=== PATIENT | male | born 1970 | race African-American/Black ===

== ENCOUNTER 2022-10-02 19:17 | Emergency (ER) | payer BC, SELFPAY ==
[2022-10-02 19:29] VITALS: BP 160/120; PULSE 88; O2SAT 99
[2022-10-02 21:09] VITALS: BP 125/83; PULSE 85; RESP 16; TEMP 36.3; O2SAT 99; BMI 22.8
--- NOTE | 2022-10-03 00:03 | ED_ITS ---
HPI - Back Pain/Injury General Chief Complaint: Back Pain/Injury Stated Complaint: Back Spasms Time Seen by Provider: 10/02/22 23:52 Source: patient Mode of arrival: EMS Limitations: no limitations History of Present Illness HPI Narrative: 51 yo male w/ PMHx significant for HTN, anxiety, and prior back injury presents w/ low back pain and muscle spasms. Pt reports injury from 32 years ago that causes recurrent muscle spasms. Reports that this episode has been ongoing since yesterday and spasms occur w/ any movement. Denies relief from use of cyclobenzaprine, motrin, or tylenol. Denies associated fevers, chills, headache, chest pain, SOB, abd pain, hematuria/dysuria, flank pain, loss of bowel or bladder function, dysuria, urinary frequency, paresthesias, or lower extremity weakness. Denies hx of recent injury/trauma, cancer, or IV drug use. MD elicited complaint: back pain Pertinent past history: prior back pain Onset (ago): day(s) (2) Timing: intermittent Severity: mild Similar Symptoms Previously: Yes Quality: aching Location: lumbar spine Radiation: none Exacerbating factors: movement Relieving factors: immobilization Associated symptoms: denies other symptoms Treatments prior to arrival: NSAIDS, acetaminophen and other medications (cyclobenzaprine ) Work related injury: No Related Data Previous Rx's Medication Instructions Recorded acetaminophen 500 mg tablet 500 mg PO Q6H PRN fever or pain 10/03/22 (Tylenol Extra Strength) #14 tabs cyclobenzaprine 5 mg tablet 5 mg PO Q8H PRN pain (scale score 10/03/22 7-10) 5 days #14 tabs lidocaine 5 % topical patch 1 patch topical DAILY PRN pain #30 10/03/22 (Lidoderm) ea naproxen 500 mg tablet 500 mg PO BID PRN pain 10 days #20 10/03/22 tabs Allergies Allergy/AdvReac Type Severity Reaction Status Date / Time SEASONAL ALLERGIES Allergy Unknown UNKNOWN Uncoded 07/15/20 18:10 Review of Systems Review of Systems: Constitutional: No Fever, No Chills ENT/Mouth: No Ear Pain, No Nasal Congestion Cardiovascular: No Chest Pain, No SOB Respiratory: No Cough, No Sputum, No Wheezing Gastrointestinal: No Nausea, No Vomiting, No Diarrhea, No Constipation, No Abdominal pain Genitourinary: No Dysuria, No Urinary Frequency, No Hematuria, No Urinary Incontinence/retention, No Flank Pain Musculoskeletal: No joint pain, No Myalgias, No Joint Swelling, + back pain Skin: No Skin Lesions, No rash Neuro: No Weakness, No Numbness, No Paresthesias [facility] Past Medical History Attestation statement: The following information was validated with the patient. Social History Social History Advance Directives: No Advance Directives Information Provided: No Physical Exam Vital Signs: Vital Signs: Last Vital Signs Temp 98.5 F 10/03/22 00:42 Pulse 80 10/03/22 00:42 Resp 18 10/03/22 00:42 BP 125/88 10/03/22 00:42 Pulse Ox 98 10/03/22 00:42 O2 Del Method 10/03/22 00:42 BMI result Body Mass Index 22.8 Const: General: cooperative, healthy appearing and comfortable Orientation/consciousness: patient oriented x3 Limitations: no limitations HEENT: Head: Yes normal to inspection Ears: hearing grossly normal bilaterally General nose exam: Normal external nose present Eyes: General: appearance normal, both eyes and all related structures Neck: Other: No midline cervical spinous tenderness Neck: Yes normal visual inspection Chest: Chest palpation & inspection: normal inspection of the chest Resp: Effort & Inspection: normal respiratory effort and able to speak in complete sentences Auscultation: clear to auscultation bilaterally Cardio: Rate: regular rate Rhythm: regular rhythm Heart sounds: S1 normal heart sound present and S2 normal heart sound present GI: Inspection: Yes normal to inspection Palpation (GI): Soft to palpation, not firm, nontender, no guarding, not rigid and no masses Back/Spine/Pelvis: Back: No mass, No erythema, No warmth and No ecchymosis Cervical Spine: No cervical muscular tenderness and No Cervical spine tenderness Thoracic/Lumbar Spine: thoracic and lumbar spine normal to inspection, paraspinal muscle tenderness bilaterally (worse to palpation and w/ movement ) in the mid lumbar and No lumbar spinal tenderness Sacrum: no ecchymosis Skin: General skin exam: no rashes or lesions noted Neuro: Other: Strength intact throughout. No saddle anesthesia. Sensation intact to light touch. Neurovascular intact distally General: patient oriented x3, gait normal, tone normal, moves all extremities and Normal light touch and pain sensation (to bilat upper and lower extremities ) Motor exam (neuro): 5/5 motor strength present throughout Extrem: General: Yes normal to inspection Medical Decision Making Medical Decision Making MDM Narrative: 51 yo male w/ PMHx significant for HTN, anxiety, and prior back injury presents w/ low back pain and muscle spasms. On exam vital signs stable, NAD, nontoxic appearing, physical exam as above, no midline spinous tenderness throughout or red flag symptoms. Ambulating with steady gait. No saddle anesthesia. Concern for MSK pain/strain/spasming. Low suspicion for cauda equina, cord compression, renal stone/pyelo or UTI. Low suspicion for epidural abscess Plan: Pain control, PCP follow-up Differential Diagnoses: Differential diagnosis (As above) Differential Diagnosis: The differential diagnosis associated with the patient?s presentation includes: Non-ED record review: Review of External (Non-ED) Record Tests considered but not performed: Tests Considered But Not Performed (Imaging) The following testing was considered but ultimately not selected after discussion with patient/family. Discharge Plan Discharge Clinical Impression: Strain of lumbar region Patient Disposition: Home, Self-Care Instructions: Acute Low Back Pain (ED) Additional Instructions: Your pain is likely musculoskeletal Flexeril is a muscle relaxer, take at night as it makes you drowsy, do not drive, drink alcohol, or operate machinery while taking it Naproxen as an anti-inflammatory / pain medication, take with food Lidoderm patches are numbing patches, apply to painful area In addition take Tylenol at home If symptoms persist or worsen, pain becomes unbearable, you developed urinary retention or incontinence, or weakness return to the ED Prescriptions: New acetaminophen [Tylenol Extra Strength] 500 mg tablet 500 mg PO Q6H PRN (Reason: fever or pain) Qty: 14 0RF lidocaine [Lidoderm] 5 % adhesive patch,medicated 1 patch topical DAILY MDD remove after 12 hours PRN (Reason: pain) Qty: 30 0RF Rx Instructions: leave on most painful area for up to 12 hrs naproxen 500 mg tablet 500 mg PO BID PRN (Reason: pain) 10 Days Qty: 20 0RF cyclobenzaprine 5 mg tablet 5 mg PO Q8H PRN (Reason: pain (scale score 7-10)) 5 Days Qty: 14 0RF Referrals: Bella Campos MD [Primary Care Provider] - 5 days Stand Alone Forms: Work/School Release
[2022-10-03 00:42] VITALS: BP 125/88; PULSE 80; RESP 18; TEMP 36.9; O2SAT 98
[2022-10-03] MEDS: Lidocaine 4 % Patch ADH..PATCH 1 PATCH TRANSDERMA (01:47)
[2022-10-03] MEDS: Cyclobenzaprine HCl 10 MG TABLET PO (01:47)
[2022-10-03] MEDS: Ketorolac Tromethamine 30 MG/ML VIAL IM (01:48)
--- NOTE | 2022-10-03 01:52 | PC.NURSE ---
Eval by PA, pt medicated per MAR for lower back muscle spasms. Awaiting dc home.
== END 2022-10-03 01:54 | disposition home or self-care (01) ==
PROVIDERS: Emergency Provider Emergency Medicine; PCP Family Medicine
DX: R25.2 Cramp and spasm (principal); M54.50 Low back pain, unspecified; Z79.899 Other long term (current) drug therapy
CPT/HCPCS: 96372; 99283; 99284; J1885